=== PATIENT | female | born 1950 | race African-American/Black ===

== ENCOUNTER 2020-03-15 16:59 | Emergency (ER) | payer MEDICARE ==
[2020-03-15] MEDS ORDERED: Mag-Al Plus 1200 MG/1200 MG/120 MG/30 ML UDCUP ONE (17:34)
[2020-03-15] MEDS ORDERED: Bisacodyl 10 MG SUPP ONE (17:34)
[2020-03-15] MEDS ORDERED: Sodium Chloride 0.9% 1,000 ML ONE (17:34)
[2020-03-15 17:47] LABS: #Eosinphils 0.2 thou/uL (0.0-0.7); #Lymphocytes 1.9 thou/uL (1.20-3.40); #Monocytes 0.4 thou/uL (0.11-0.59); #Neutrophils 4.9 thou/uL (1.40-6.50); %Basophils 0.5 % (0.0-1.0); %Eosinophils 2.8 % (0.0-10.0); %Monocytes 5.9 % (0.0-10.0); %Neutrophils 65.9 % (42.0-75.0); Hemoglobin 14.5 g/dL (12.0-16.0); Mean Corpuscular HGB CONC 32.5 g/dL (32.0-36.0); Mean Corpuscular Hemoglobin 28.4 pg (27.0-31.0); Mean Corpuscular Volume 87.5 fL (78.0-98.0); Platelet Count 201 thou/uL (130-400); RBC Distribution Width 12.2 % (11.5-14.5); Red Blood Cell (RBC) Count 5.09 mill/uL (4.20-5.40); White Blood Cell (WBC) Count 7.4 thou/uL (4.8-10.8)
[2020-03-15 18:09] LABS: ALT (SGPT) 14 U/L (8-55); AST (SGOT) 15 U/L (5-34); Albumin 4.1 g/dL (3.4-4.8); Alkaline Phosphatase 120 U/L (40-110); Anion Gap 15 mmol/L (10-20); BUN (Urea Nitrogen) 15 mg/dL (9.8-20.1); Bilirubin, Total 0.3 mg/dL (0.2-1.2); Calc. Creatinine Clearance 0 mL/min (70-130); Calcium 9.6 mg/dL (7.8-10.44); Carbon Dioxide 24 mmol/L (23-31); Chloride 100 mmol/L (98-107); Estimated GFR-MDRD 35; Globulin 3.2 g/dL (2.4-3.5); Glucose 554 mg/dL (80-115); Protein, Total 7.3 g/dL (6.0-8.3); Sodium 135 mmol/L (136-145)
[2020-03-15] MEDS ORDERED: Dicyclomine 20 MG TAB ONE (18:23)
[2020-03-15] MEDS ORDERED: Insulin Regular 300 UNITS/3 ML VIAL ONE (18:25)
[2020-03-15] MEDS ORDERED: Metoclopramide HCl 10 MG/2 ML VIAL ONE (18:25)
--- NOTE | 2020-03-15 20:49 | CT ---
CT ABDOMEN AND PELVIS WITHOUT IV CONTRAST: Date: 03/15/2020 PROVIDED CLINICAL HISTORY: Abdominal pain and constipation. FINDINGS: The visualized lung bases are free of significant opacity. There is moderate right hydronephrosis and right hydroureter to the level of a 7.0 mm distal right ur eteral calculus. There are additional calculi present within each kidney, largest on the right measur ing about 7.0 mm, and largest on the left measuring about 3.0 mm. The liver, spleen, pancreas, and adrenal glands demonstrate an unremarkable CT appearance suboptimall y evaluated in the absence of IV contrast. There is no bowel dilatation, inflammatory fat stranding, free fluid, or free air apparent. The [place]en [place] appears normal. Scattered atherosclerotic vascular calcifications are seen. The gallbladder is decompressed. The osse ous structures demonstrate no concerning lytic or blastic lesions. IMPRESSION: 1. 7.0 mm obstructing right distal ureteral calculus. 2. Bilateral nephrolithiasis. POS: [id number]
== END 2020-03-15 20:28 | disposition home or self-care (01) ==
LOC: NAV ERS 16:59
DX: N13.2 Hydronephrosis with renal and ureteral calculous obstruction (principal); K59.00 Constipation, unspecified; E86.9 Volume depletion, unspecified; E11.65 Type 2 diabetes mellitus with hyperglycemia; E78.5 Hyperlipidemia, unspecified; E78.00 Pure hypercholesterolemia, unspecified; I10 Essential (primary) hypertension; Z87.891 Personal history of nicotine dependence; Z79.899 Other long term (current) drug therapy; Z79.82 Long term (current) use of aspirin
CPT/HCPCS: 36416; 74176; 80053; 82274; 83690; 85025; 96374; J1815; J2765; J7050